=== PATIENT | female | born 1980 | race Caucasian/White ===

== ENCOUNTER 2020-08-28 03:24 | Inpatient (IN) | payer OTHER ==
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
[2020-08-28] MEDS ORDERED: NITROGLYCERIN OINT 1 INCH/GM PACKET TOPICAL SCH (06:00)
[2020-08-28] MEDS ORDERED: DOBUTamine DRIP for NUC MED 500 MG in DEXTROSE/WATER 1 250ML.BAG IV ONE (08:29)
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
[2020-08-28] MEDS ORDERED: AMINOPHYLLINE 500 MG/20 ML VIAL IV PRN (11:33)
[2020-08-28] MEDS ORDERED: REGADENOSON 0.4 MG/5 ML SYRINGE IV ONE (11:33)
[2020-08-28] MEDS ORDERED: CAFFEINE CITRATE 60 MG/3 ML VIAL IV PRN (11:33)
[2020-08-28 11:43] LABS: ALT 102 U/L (4-34); AST 127 U/L (14-36); African American GFR (CKD) >90 (>60 ml/min/1.73 sqM); Albumin 3.5 g/dL (3.5-5.0); Alkaline Phosphatase 184 U/L (38-126); Anion Gap 7 mmol/L; Blood Urea Nitrogen 15 mg/dL (7-17); Calcium 9.1 mg/dL (8.4-10.2); Carbon Dioxide 34 mmol/L (22-30); Chloride 98 mmol/L (98-107); Glucose 140 mg/dL (74-99); Non-African American GFR(CKD) >90 (>60 ml/min/1.73 sqM); Potassium 4.7 mmol/L (3.5-5.1); Sodium 139 mmol/L (137-145); Total Bilirubin 0.7 mg/dL (0.2-1.3); Total Protein 7.2 g/dL (6.3-8.2)
--- NOTE | 2020-08-28 11:50 | ECHOF ---
Referral Reason:cp MEASUREMENTS -------- HEIGHT: 160.0 cm WEIGHT: 104.3 kg BP: 146/84 RVIDd: 2.6 cm (< 3.3) IVSd: 1.6 cm (0.6 - 1.1) LVIDd: 5.4 cm (3.9 - 5.3) LVPWd: 1.4 cm (0.6 - 1.1) IVSs: 1.7 cm LVIDs: 3.6 cm LVPWs: 1.8 cm LA Diam: 4.1 cm (2.7 - 3.8) Ao Diam: 3.1 cm (2.0 - 3.7) AV Cusp: 2.2 cm (1.5 - 2.6) MV EXCURSION: 11.714 mm (> 18.000) MV EF SLOPE: 68 mm/s (70 - 150) EPSS: 1.0 cm MV E Pacheco: 1.00 m/s MV DecT: 214 ms MV A Pacheco: 0.62 m/s MV E/A Ratio: 1.62 FINDINGS -------- Sinus rhythm. This was a technically difficult study with suboptimal views. The left ventricular size is normal. There is moderate concentric left ventricular hypertrophy. O verall left ventricular systolic function is normal with, an EF between 55 - 60 %. The right ventricle is normal in size. The left atrium is mildly dilated. The right atrial size is normal. 5 ml of Lumason was utilized for enhancement of images. The aortic valve was not well visualized. The mitral valve was not well visualized. The tricuspid valve was not well visualized. The pulmonic valve was not well visualized. The aortic root size is normal. IVC Not well visulized. There is no pericardial effusion. CONCLUSIONS -------- 1. This was a technically difficult study with suboptimal views. 2. There is moderate concentric left ventricular hypertrophy. 3. Overall left ventricular systolic function is normal with, an EF between 55 - 60 %. 4. The left atrium is mildly dilated. 5. 5 ml of Lumason was utilized for enhancement of images. 6. The aortic valve was not well visualized. 7. The mitral valve was not well visualized. 8. The tricuspid valve was not well visualized. 9. The pulmonic valve was not well visualized. ELEVATING GRADER OPERATOR: Myrna Griffin RDCS
[2020-08-28 11:51] LABS: Basophils # (A) 0.1 k/uL (0-0.2); Basophils % (A) 1 %; Eosinophils # (A) 0.3 k/uL (0-0.7); Eosinophils % (A) 3 %; HCT 44.2 % (34.0-46.0); HGB 13.8 gm/dL (11.4-16.0); Hypochromasia Slight; Lymphocytes # (A) 2.2 k/uL (1.0-4.8); Lymphocytes % (A) 18 %; MCH 31.5 pg (25.0-35.0); MCHC 31.2 g/dL (31.0-37.0); MCV 101.1 fL (80.0-100.0); Mean Platelet Volume 7.9; Monocytes # (A) 0.5 k/uL (0-1.0); Monocytes % (A) 4 %; Neutrophils # (A) 8.9 k/uL (1.3-7.7); Neutrophils % (A) 73 %; Platelet Count 319 k/uL (150-450); RBC 4.37 m/uL (3.80-5.40); RDW 13.2 % (11.5-15.5); WBC 12.2 k/uL (3.8-10.6)
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
[2020-08-28] MEDS: FAMOTIDINE 20 MG/2 ML VIAL IV SCH (19:32)
[2020-08-28] MEDS: GABAPENTIN 300 MG CAP PO SCH (19:32)
[2020-08-28] MEDS: ATORVASTATIN 40 MG TAB PO SCH (19:32)
[2020-08-28] MEDS: MONTELUKAST 10 MG TAB PO SCH (19:32)
[2020-08-28] MEDS: HEPARIN SODIUM,PORCINE 5,000 UNIT/ML 1 ML VIAL SQ SCH (19:32)
[2020-08-29 02:06] LABS: Cholesterol 227 mg/dL (<200); HDL Cholesterol 25 mg/dL (40-60); LDL Cholesterol,Calculated 163 mg/dL (0-99); Triglycerides 195 mg/dL (<150)
[2020-08-29] MEDS: metFORMIN 500 MG TAB PO SCH ×2 (06:43→18:06)
[2020-08-29] MEDS ORDERED: ASPIRIN 325 MG TAB PO SCH (09:00)
--- NOTE | 2020-08-29 09:16 | PN ---
PROGRESS NOTE Mrs. Mejia is a 40-year-old female with a history of chronic obstructive lung disease, history of hypertension, hyperlipidemia, who presented with symptoms of dyspnea and chest discomfort. She was scheduled to undergo dobutamine stress echocardiogram yesterday, but could not tolerate because of nausea. She is feeling better today. Her breathing is better. She denies any chest pain. No dizziness. No palpitation. No nausea. She continues to be at this time on aspirin once a day, Lipitor 40 mg daily, metformin 5 mg twice a day. PHYSICAL EXAMINATION: Blood pressure 116/70 with a heart rate in the 80s. LUNGS: No wheezes. HEART: Regular rate and rhythm, S1, S2. No S3. No rub. ABDOMEN: Soft and nontender. EXTREMITIES: +1 edema. LAB DATA: Revealed an AST of 127, ALT of 102, cholesterol 227, LDL of 163. Hemoglobin is 13.8. IMPRESSION: 1. Chest discomfort of unclear etiology. 2. Chronic obstructive lung disease with chronic tobacco use. 3. Hypertension. 4. Hyperlipidemia. 5. Diabetes mellitus. RECOMMENDATION: Will proceed with Lexiscan nuclear scan today and depending on those findings, further recommendation will be made. MMODL / IJN: [id number] /
[2020-08-29] MEDS ORDERED: AMINOPHYLLINE 500 MG/20 ML VIAL IV ONE (09:23)
--- NOTE | 2020-08-29 10:45 | EST ---
EXERCISE STRESS AGE: 40 SEX: F HT: 63" WT: 343 PROTOCOL: Lexiscan Cardiolite Stress Test HEART RATE REST: 74 BLOOD PRESSURE REST: 118/67 MAXIMUM HEART RATE ACHIEVED: 93 MAXIMUM BLOOD PRESSURE: 147/70 85% MPHR: 153 100% MPHR: 180 CLINICAL INFORMATION: Baseline rhythm is a sinus mechanism, rate of 74, normal axis and intervals, poor R- wave progression. Baseline blood pressure 118/67 mmHg. Patient received injection of Lexiscan. Electrocardiograph monitoring revealed no evidence of diagnostic ischemic ST deviation. Cardiolite was injected per protocol. CONCLUSION: 1. Nondiagnostic electrocardiograph stress testing. 2. Nuclear images will be reported separately. MMODL / IJN: [id number] /
[2020-08-29] MEDS: ASPIRIN 81 MG PO SCH (11:17)
[2020-08-29] MEDS: FERROUS SULFATE 325 MG TAB PO SCH (11:17)
[2020-08-29] MEDS: FAMOTIDINE 20 MG/2 ML VIAL IV SCH (11:17)
[2020-08-29] MEDS: HEPARIN SODIUM,PORCINE 5,000 UNIT/ML 1 ML VIAL SQ SCH ×2 (11:17→21:07)
[2020-08-29] MEDS: CHLORTHALIDONE 25 MG TAB PO SCH (11:17)
[2020-08-29] MEDS: FLUTICASONE 50MCG/SPRAY NASAL 16GM EA NOSTRIL SCH (11:18)
[2020-08-29] MEDS: GABAPENTIN 300 MG CAP PO SCH ×2 (11:18→21:07)
--- NOTE | 2020-08-29 11:34 | NM ---
EXAMINATION TYPE: NM stress lexiscan cardiolite DATE OF EXAM: 08/29/2020 COMPARISON: NONE HISTORY: Chest pain TECHNIQUE: After the intravenous administration of 10.8 mCi Tc 99m Sestamibi - Cardiolite resting SP ECT images acquired 60 minutes post injection. The patient received 0.4mg Lexiscan, 26.9 mCi Tc 99m Sestamibi - Stress images obtained [address] injection FINDINGS: Review of stress and rest SPECT images demonstrates reversible perfusion abnormality of the mid anter ior wall on stress on the patient's color maps, however the polar maps and quantitative analysis demo nstrate no significant reversible perfusion abnormality of the mid anterior wall. Gated analysis show s normal wall motion with an estimated left ventricular ejection fraction of 46 %. TID 1.01 IMPRESSION: 1. Reversible perfusion abnormality of the mid anterior wall on color maps, with no significant reve rsible perfusion abnormality on polar maps and quantitative analysis. Findings are equivocal for reve rsible ischemia of the mid anterior wall. Recommend correlation with EKG. 2. Ejection fraction 46%.
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
[2020-08-29 13:50] LABS: Basophils % (A) 0 %; Eosinophils # (A) 0.3 k/uL (0-0.7); Eosinophils % (A) 3 %; HCT 43.8 % (34.0-46.0); HGB 13.9 gm/dL (11.4-16.0); Lymphocytes # (A) 2.2 k/uL (1.0-4.8); Lymphocytes % (A) 22 %; MCH 31.7 pg (25.0-35.0); MCHC 31.7 g/dL (31.0-37.0); Mean Platelet Volume 7.7; Monocytes # (A) 0.4 k/uL (0-1.0); Monocytes % (A) 4 %; Neutrophils # (A) 6.9 k/uL (1.3-7.7); Neutrophils % (A) 70 %; Platelet Count 297 k/uL (150-450); RBC 4.38 m/uL (3.80-5.40); WBC 9.9 k/uL (3.8-10.6)
[2020-08-29 14:09] LABS: Albumin 3.5 g/dL (3.5-5.0); Bilirubin, Delta 0.6 mg/dL (0.0-0.2); Bilirubin,Unconjugated 0.3 mg/dL (0.0-1.1); Total Bilirubin 0.9 mg/dL (0.2-1.3); Total Protein 7.3 g/dL (6.3-8.2)
[2020-08-29] MEDS ORDERED: NITROGLYCERIN SL TABS 0.4 MG TAB SUBLINGUAL PRN (14:10)
[2020-08-29] MEDS ORDERED: ATORVASTATIN 80 MG TAB PO STA (14:10)
[2020-08-29] MEDS ORDERED: ALPRAZolam 0.25 MG TAB PO PRN (14:10)
[2020-08-29] MEDS ORDERED: SODIUM CHLORIDE 0.9% 1,000 ML in EMPTY BAG 1 BAG IV ONE (14:10)
[2020-08-29] MEDS ORDERED: ALPRAZolam 0.5 MG TAB PO PRN (14:10)
[2020-08-29] MEDS ORDERED: ASPIRIN 325 MG TAB PO STA (14:10)
[2020-08-29] MEDS: FAMOTIDINE 20 MG TAB PO SCH (21:07)
[2020-08-29] MEDS: MONTELUKAST 10 MG TAB PO SCH (21:07)
[2020-08-29] MEDS: ATORVASTATIN 40 MG TAB PO SCH (21:10)
[2020-08-30 00:32] LABS: Appearance,Urine Clear (Clear); Bilirubin,Urine Negative (Negative); Blood,Urine Negative (Negative); Color,Urine Yellow; Glucose,Urine (UA) Negative (Negative); Ketones,Urine Negative (Negative); Leukocyte Esterase,Urine Negative (Negative); Nitrite,Urine Negative (Negative); PH, Urine 6.5 (5.0-8.0); Protein,Urine Negative (Negative); Specific Gravity,Urine 1.013 (1.001-1.035)
[2020-08-30 05:39] LABS: Hepatitis A Antibody IgM Non-Reactive (Non-Reactive); Hepatitis B Core IgM Non-Reactive (Non-Reactive); Hepatitis B Surface Antigen Non-Reactive (Non-Reactive); Hepatitis C IgG Antibody Non-Reactive (Non-Reactive)
[2020-08-30 05:52] LABS: Glucose,Whole Blood 121 mg/dL (75-99)
[2020-08-30] MEDS: FAMOTIDINE 20 MG TAB PO SCH ×2 (06:03→22:13)
[2020-08-30] MEDS: HEPARIN SODIUM,PORCINE 5,000 UNIT/ML 1 ML VIAL SQ SCH ×2 (06:04→22:14)
[2020-08-30] MEDS: GABAPENTIN 300 MG CAP PO SCH ×2 (06:04→22:13)
[2020-08-30] MEDS: FERROUS SULFATE 325 MG TAB PO SCH (06:04)
[2020-08-30] MEDS ORDERED: LIDOCAINE 1% INJ 10MG/ML (20 ML MDV) ONE (07:44)
[2020-08-30] MEDS ORDERED: VERAPAMIL 2.5 MG/ML 2 ML AMP ONE (07:44)
[2020-08-30] MEDS ORDERED: IV FLUID CONTINUATION 1,000 ML IV ONE (07:50)
[2020-08-30 07:54] LABS: Basophils % (A) 0 %; Eosinophils # (A) 0.3 k/uL (0-0.7); Eosinophils % (A) 3 %; HCT 43.2 % (34.0-46.0); HGB 13.2 gm/dL (11.4-16.0); Lymphocytes # (A) 2.5 k/uL (1.0-4.8); Lymphocytes % (A) 24 %; MCH 31.4 pg (25.0-35.0); MCHC 30.6 g/dL (31.0-37.0); MCV 102.8 fL (80.0-100.0); Macrocytosis Slight; Mean Platelet Volume 7.8; Monocytes # (A) 0.5 k/uL (0-1.0); Monocytes % (A) 5 %; Neutrophils % (A) 67 %; Platelet Count 264 k/uL (150-450); RDW 13.5 % (11.5-15.5); WBC 10.5 k/uL (3.8-10.6)
[2020-08-30 08:05] LABS: ALT 83 U/L (4-34); AST 102 U/L (14-36); African American GFR (CKD) >90 (>60 ml/min/1.73 sqM); Albumin 3.2 g/dL (3.5-5.0); Alkaline Phosphatase 170 U/L (38-126); Anion Gap 7 mmol/L; Blood Urea Nitrogen 16 mg/dL (7-17); Calcium 8.8 mg/dL (8.4-10.2); Carbon Dioxide 30 mmol/L (22-30); Chloride 100 mmol/L (98-107); Glucose 124 mg/dL (74-99); Magnesium 1.6 mg/dL (1.6-2.3); Non-African American GFR(CKD) >90 (>60 ml/min/1.73 sqM); Sodium 137 mmol/L (137-145); Total Bilirubin 0.8 mg/dL (0.2-1.3); Total Protein 6.7 g/dL (6.3-8.2)
[2020-08-30] MEDS ORDERED: fentaNYL (PF) 50 MCG/ML 2 ML AMP ONE (08:07)
[2020-08-30] MEDS ORDERED: fentaNYL (PF) 50 MCG/ML 2 ML AMP IV ONE (08:30)
[2020-08-30] MEDS: LIDOCAINE 1% INJ 10MG/ML (20 ML MDV) SQ ONE ×3 (08:33→08:57)
[2020-08-30] MEDS: VERAPAMIL SYRINGE (5 MG/10 ML) INTRAARTER ONE ×2 (09:00→09:14)
[2020-08-30] MEDS: MIDAZOLAM 2 MG/2 ML VIAL IV ONE ×2 (09:06→09:14)
[2020-08-30] MEDS ORDERED: HEPARIN SODIUM 1,000 UN/ML (10ML VL) ONE (09:07)
[2020-08-30] MEDS ORDERED: HEPARIN SODIUM 1,000 UN/ML (10ML VL) IV ONE (09:08)
[2020-08-30] MEDS ORDERED: IOPAMIDOL-370 125ML BTL INJ ONE (09:18)
[2020-08-30] MEDS ORDERED: MIDAZOLAM 2 MG/2 ML VIAL IV ONE (09:21)
[2020-08-30] MEDS ORDERED: RX INFO: IV CONTRAST WAS GIVEN 1 EACH MISC MISCELLANE PRN (09:28)
[2020-08-30] MEDS ORDERED: SODIUM CHLORIDE 0.9% 1,000 ML IV SCH (09:30)
--- NOTE | 2020-08-30 09:42 | US ---
EXAMINATION TYPE: US liver DATE OF EXAM: 08/30/2020 COMPARISON: NONE CLINICAL HISTORY: elevated liver enz. morbidly obese pt, smoker, heart disease EXAM MEASUREMENTS: Liver Length: 20.8 cm Gallbladder Wall: 0.3cm CBD: not seen Right Kidney: 11.4 x 5.5 x 5.7 cm Pancreas: Obscured by bowel gas Liver: very difficult to image, fatty liver Gallbladder: wnl Evidence for sonographic Aleman's sign: CBD: unable to view cbd after multiple attempts Right Kidney: limited views IMPRESSION: 1. Hepatomegaly with a non-pattern of liver can be seen with hepatic steatosis, hepatitis or hepatoce llular disease.
--- NOTE | 2020-08-30 09:56 | CC ---
CARDIAC CATHETERIZATION REPORT Mrs Mejia is a 40-year-old female with known history of chronic tobacco use, history of hypertension, history of diabetes and who presented with symptoms of chest discomfort. Her cardiac enzymes were unremarkable. She underwent a myocardial perfusion imaging that revealed evidence of inducible ischemia. In view of that, recommendation made regarding cardiac catheterization. The procedures, risks, and complication were discussed with the patient who is in full understanding and agreement. PROCEDURE: Patient was brought to the director of cardiac cath lab in a fasting semi-sedated state after receiving fentanyl and Benadryl and achieving moderate conscious sedated state. Attempts to cannulate the right radial artery were unsuccessful. Subsequently, the left radial artery was cannulated. Selective right and left coronary angiography performed using 5- [place]ian 4 bend left Tresa and 3.5 bend right Tresa catheter. Multiple views of the coronary artery including hemiaxial views were obtained. The right Tresa catheter was used to cross the aortic valve and pressures were calculated. Following that, catheter and sheath were removed. Hemostasis was obtained with deployment of a TR band. There was no immediate complication. Patient is returned to her room in stable condition. Of note, the patient had received 5000 units of intravenous heparin as well as intra-arterial verapamil. FINDINGS: LEFT MAIN: This is a large-sized vessel, bifurcating into left circumflex, left anterior descending artery. Left main coronary artery has no evidence of high-grade stenosis. LEFT ANTERIOR DESCENDING ARTERY: This is a large-sized vessel, reaching toward the apex, giving rise to a large diagonal branch proximally. The left anterior descending artery as well as branches have no evidence of obstructive coronary artery disease. LEFT CIRCUMFLEX: This is a small nondominant vessel that has no evidence of high-grade stenosis. RIGHT CORONARY ARTERY: This is a large dominant vessel, bifurcating distally into PDA and posterolateral segment and branches. The right coronary artery as well as branches have no evidence of obstructive coronary artery disease. LEFT VENTRICULOGRAM: Left ventriculogram was not performed. HEMODYNAMICS: There was no gradient across the aortic valve. The left ventricular end- diastolic pressure was 14-18 mmHg. CONCLUSION: 1. Normal coronary arteries. 2. Right dominance. RECOMMENDATION: In view of finding anatomy, I recommend continue medical therapy with aggressive risk modifications being initiated. Those findings and recommendation were discussed with the patient and she is in full understanding and agreement. Duration of sedation 50 minutes. MMODL / IJN: [id number] /
[2020-08-30] MEDS: ASPIRIN 81 MG PO SCH (10:38)
[2020-08-30] MEDS: FLUTICASONE 50MCG/SPRAY NASAL 16GM EA NOSTRIL SCH (10:41)
[2020-08-30] MEDS: CHLORTHALIDONE 25 MG TAB PO SCH (10:42)
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
[2020-08-30] MEDS: traMADol 50 MG TAB PO PRN ×2 (16:03→22:14)
[2020-08-30 17:45] LABS: Glucose,Whole Blood 102 mg/dL (75-99)
[2020-08-30] MEDS: ATORVASTATIN 40 MG TAB PO SCH (22:13)
[2020-08-30] MEDS: MONTELUKAST 10 MG TAB PO SCH (22:14)
[2020-08-31 06:48] LABS: Glucose,Whole Blood 134 mg/dL (75-99)
[2020-08-31] MEDS: FERROUS SULFATE 325 MG TAB PO SCH (07:49)
[2020-08-31] MEDS: HEPARIN SODIUM,PORCINE 5,000 UNIT/ML 1 ML VIAL SQ SCH (07:49)
[2020-08-31] MEDS: GABAPENTIN 300 MG CAP PO SCH (07:49)
[2020-08-31] MEDS: FAMOTIDINE 20 MG TAB PO SCH (07:49)
[2020-08-31] MEDS: ASPIRIN 81 MG PO SCH (07:49)
[2020-08-31] MEDS: FLUTICASONE 50MCG/SPRAY NASAL 16GM EA NOSTRIL SCH (07:49)
[2020-08-31] MEDS: CHLORTHALIDONE 25 MG TAB PO SCH (07:49)
[2020-08-31 08:08] VITALS: BP 117/78; PULSE 72; RESP 16; TEMP 97.8
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
--- NOTE | 2020-08-31 09:16 | PN ---
PROGRESS NOTE Mrs. Mejia is 40-year-old female who presented with symptoms of chest discomfort. She has a known history of hypertension, diabetes and chronic tobacco use. She underwent cardiac catheterization because of abnormal myocardial perfusion imaging was found to have no evidence of obstructive lung disease. She is doing well this morning. She denies any chest pain. No dizziness. No palpitation. She continues to be on aspirin 81 mg daily, chlorthalidone 25 mg daily, Lipitor 40 mg daily, Singulair. PHYSICAL EXAMINATION: Blood pressure 135/80 with a heart rate in the 70s. LUNGS: Clear. HEART: Regular rate and rhythm S1, S2. No S3. No rub. ABDOMEN: Soft, obese, nontender. Left radial pulse intact with mild tenderness. IMPRESSION: 1. Chest discomfort with an abnormal myocardial perfusion imaging and no evidence of obstructive coronary artery disease. 2. History of smoking. 3. History of diabetes. 4. Hypertension. 5. Evidence of elevated LFTs, probably fatty liver with hepatic steatosis. RECOMMENDATION: From the cardiac standpoint she should be able to be discharged home today and followed as an outpatient. MMODL / IJN: [id number] /
[2020-08-31 09:32] LABS: ALT 80 U/L (4-34); AST 104 U/L (14-36); African American GFR (CKD) >90 (>60 ml/min/1.73 sqM); Albumin 3.5 g/dL (3.5-5.0); Alkaline Phosphatase 156 U/L (38-126); Anion Gap 5 mmol/L; Blood Urea Nitrogen 14 mg/dL (7-17); Calcium 8.5 mg/dL (8.4-10.2); Carbon Dioxide 36 mmol/L (22-30); Chloride 95 mmol/L (98-107); Glucose 184 mg/dL (74-99); Magnesium 1.7 mg/dL (1.6-2.3); Non-African American GFR(CKD) >90 (>60 ml/min/1.73 sqM); Sodium 136 mmol/L (137-145); Total Bilirubin 1.1 mg/dL (0.2-1.3); Total Protein 7.5 g/dL (6.3-8.2)
[2020-08-31 09:48] LABS: Potassium 4.7 mmol/L (3.5-5.1)
== END 2020-08-31 09:45 | disposition home or self-care (01) | DRG 286 ==
LOC: EEVIPCON 03:24 → EC 03:24 → 3NCARDOBS 04:43 → OBSVTOIN 08-29 20:03
PROVIDERS: ADMIT Internal Medicine; ATTEND Internal Medicine
PROC: B2111ZZ Fluoroscopy of Multiple Coronary Arteries using Low Osmolar Contrast (ICD-10-PCS; principal; 2020-08-30 07:30)
PROC: 4A023N7 Measurement of Cardiac Sampling and Pressure, Left Heart, Percutaneous Approach (ICD-10-PCS; principal; 2020-08-30 07:30)
DX: R07.89 Other chest pain (principal); J96.01 Acute respiratory failure with hypoxia; E66.2 Morbid (severe) obesity with alveolar hypoventilation; Z68.44 Body mass index [BMI] 60.0-69.9, adult; I50.32 Chronic diastolic (congestive) heart failure; F33.9 Major depressive disorder, recurrent, unspecified; E11.9 Type 2 diabetes mellitus without complications; E78.5 Hyperlipidemia, unspecified; F17.210 Nicotine dependence, cigarettes, uncomplicated; H91.90 Unspecified hearing loss, unspecified ear; M32.9 Systemic lupus erythematosus, unspecified; M79.7 Fibromyalgia; M54.30 Sciatica, unspecified side; I11.0 Hypertensive heart disease with heart failure; J44.9 Chronic obstructive pulmonary disease, unspecified; Z90.89 Acquired absence of other organs; Z98.890 Other specified postprocedural states; Z79.84 Long term (current) use of oral hypoglycemic drugs; Z88.5 Allergy status to narcotic agent; Z88.0 Allergy status to penicillin; Z88.8 Allergy status to other drugs, medicaments and biological substances; Z79.82 Long term (current) use of aspirin; Z79.899 Other long term (current) drug therapy; Z82.49 Family history of ischemic heart disease and other diseases of the circulatory system; Z82.3 Family history of stroke
CPT/HCPCS: 36415; 76705; 78452; 80053; 80061; 80074; 80076; 81003; 83735; 84484; 85025; 85379; 93017; 93306; 93458; 94760; 99285